=== PATIENT | female | born 1990 | race Asian ===

== ENCOUNTER 2020-04-29 06:04 | Emergency (ER) | payer BC ==
[~2020-04-29] VITALS: Ht 157.5 cm; Wt 64.0 kg
[2020-04-29 06:11] VITALS: Ht 157.5 cm; Wt 64.0 kg
[2020-04-29 06:40] LABS: UA SPECIFIC GRAVITY >=1.030 (1.005-1.035); microscopic required? YES; urine erythrocyte 3+ (NEGATIVE)
[2020-04-29 07:23] LABS: CARBON DIOXIDE 26.8 mmol/L (21-32); CHLORIDE SERUM 102 mmol/L (98-107); CREATININE SERUM 0.7 mg/dL (0.6-1.0); GFR1 > 60 mL/min; GLUCOSE SERUM 117 mg/dL (74-106); POTASSIUM SERUM 4.2 mmol/L (3.5-5.1); SODIUM SERUM 137 mmol/L (136-145)
[2020-04-29 07:24] LABS: ALKALINE PHOSPHATASE 83 U/L (46-116); ALT/SGPT 37 U/L (14-59); AST/SGOT 22 U/L (15-37); BILIRUBIN TOTAL 0.3 mg/dL (0.20-1.00); TOTAL PROTEIN, SERUM 8.1 g/dL (6.4-8.2)
[2020-04-29 07:36] LABS: BASOPHIL % 0.3 % (0-2); PLATELET COUNT 245 x10^3mcL (130-400); RED CELL DISTRIBUTION WIDTH 14.3 % (11.5-14.5)
[2020-04-29 08:10] VITALS: BP 93/57
== END 2020-04-29 08:49 | disposition home or self-care (01) ==
LOC: ED 06:04
PROVIDERS: Emergency Medicine
DX: N20.0 Calculus of kidney (principal); R31.9 Hematuria, unspecified; K76.89 Other specified diseases of liver